=== PATIENT | male | born 1970 | race Hispanic/Latino ===

== ENCOUNTER 2023-08-13 07:00 | Day surgery (SDC) | payer OTHER ==
[~2023-08-13] VITALS: Ht 175.3 cm; Wt 121.6 kg
[~2023-08-13 07:00] MED LIST: FISH OIL1000 M1 PO; METFORMIN500 M2 PO; OMEPRA/BICAR1 CAP PO; PRAVASTATIN40 MG PO
[2023-08-13] MEDS ORDERED: LACTATED RINGER'S 0 ML IV ONE (07:17)
[2023-08-13] MEDS ORDERED: FAMOTIDINE 10MG/ML 2ML SDV IV ONE (07:17)
[2023-08-13 07:31] VITALS: BP 121/81
== END 2023-08-13 08:08 | disposition home or self-care (01) | DRG 951 ==
LOC: ENDO 07:00
PROVIDERS: ATTEND Surgery
DX: Z12.11 Encounter for screening for malignant neoplasm of colon (principal); E11.9 Type 2 diabetes mellitus without complications; E78.5 Hyperlipidemia, unspecified; I48.91 Unspecified atrial fibrillation; Z53.09 Procedure and treatment not carried out because of other contraindication; Z80.0 Family history of malignant neoplasm of digestive organs

== ENCOUNTER 2024-01-05 08:25 | Day surgery (SDC) | payer OTHER ==
[~2024-01-05] VITALS: Ht 175.3 cm; Wt 108.9 kg
[~2024-01-05 08:25] MED LIST changes: +ASPIRIN325 MG PO
[2024-01-05] MEDS ORDERED: SODIUM CHLORIDE 0.9% 1,000 ML IV ONE (08:58)
[2024-01-05 11:12] VITALS: BP 126/78
[2024-01-05] MEDS ORDERED: LIDOCAINE HCL 2% 2ML SDV IV ONE (12:35)
[2024-01-05] MEDS ORDERED: GLYCOPYRROLATE 0.2 MG/ML IV ONE (12:35)
[2024-01-05] MEDS ORDERED: PROPOFOL 200 MG/20 ML VIAL IV ONE (12:35)
== END 2024-01-05 11:55 | disposition home or self-care (01) | DRG 951 ==
LOC: ENDO 08:25
PROVIDERS: ATTEND Surgery
PROC: 0DBC8ZX Excision of Ileocecal Valve, Via Natural or Artificial Opening Endoscopic, Diagnostic (ICD-10-PCS; principal; 2024-01-05)
PROC: 0DBP8ZX Excision of Rectum, Via Natural or Artificial Opening Endoscopic, Diagnostic (ICD-10-PCS; 2024-01-05)
DX: Z12.11 Encounter for screening for malignant neoplasm of colon (principal); D12.0 Benign neoplasm of cecum; K62.1 Rectal polyp; K57.30 Diverticulosis of large intestine without perforation or abscess without bleeding; K64.8 Other hemorrhoids; Z80.0 Family history of malignant neoplasm of digestive organs